=== PATIENT | female | born 1960 | race Two or more races ===

== ENCOUNTER 2020-12-06 02:27 | Emergency (ER) | payer MEDICAID ==
[~2020-12-06] VITALS: Ht 170.2 cm; Wt 96.0 kg
[2020-12-06 04:10] LABS: BASOPHILS % 0.6 % (0.0-2.0); EOSINOPHILS % 2.2 % (0.0-5.0); HEMOGLOBIN. 11.9 g/dL (12.0-16.0); LYMPHOCYTES % 49.3 % (20.0-50.0); MEAN CORPUSCULAR HEMOGLOBIN 31.7 pg (28.0-32.0); MEAN CORPUSCULAR VOLUME 96.4 fL (81.0-99.0); MONOCYTES % 6.8 % (2.0-8.0); NEUTROPHILS % 41.1 % (40.0-76.0); PLATELET 259 x1000/uL (130-400); RED BLOOD CELL COUNT 3.74 mill/uL (4.2-5.4)
[2020-12-06 04:17] LABS: CHLORIDE 107 mEq/L (98-107)
[2020-12-06] MEDS ORDERED: IOHEXOL-350 100 ML BOTTLE ONE (06:35)
[2020-12-06 08:09] VITALS: BP 150/70
== END 2020-12-06 09:26 | disposition home or self-care (01) ==
LOC: ER 02:27
DX: R06.00 Dyspnea, unspecified (principal); I10 Essential (primary) hypertension; F41.9 Anxiety disorder, unspecified; K21.9 Gastro-esophageal reflux disease without esophagitis; Z88.6 Allergy status to analgesic agent
CPT/HCPCS: 36415; 71045; 71275; 80053; 83880; 84484; 85025; 85379; 93005; 99285; Q9967

== ENCOUNTER 2021-01-10 21:22 | Inpatient (IN) | payer MEDICAID ==
[~2021-01-10] VITALS: Ht 165.1 cm; Wt 98.6 kg
[2021-01-10] MEDS ORDERED: ONDANSETRON HCL 4MG/2ML INJ IV STA (22:17)
[2021-01-10] MEDS ORDERED: SODIUM CHLORIDE 0.9% 1,000 ML IV ONE (22:30)
[2021-01-10 22:38] LABS: BASOPHILS % 0.3 % (0.0-2.0); EOSINOPHILS % 1.4 % (0.0-5.0); HEMATOCRIT. 36.8 % (36.0-48.0); HEMOGLOBIN. 12.4 g/dL (12.0-16.0); LYMPHOCYTES % 35.8 % (20.0-50.0); MEAN CORPUSCULAR HEMOGLOBIN 32.2 pg (28.0-32.0); MEAN CORPUSCULAR VOLUME 95.8 fL (81.0-99.0); MEAN PLATELET VOLUME 8.7 fl (7.4-10.4); MONOCYTES % 5.5 % (2.0-8.0); PLATELET 290 x1000/uL (130-400); RED BLOOD CELL COUNT 3.84 mill/uL (4.2-5.4); RED CELL DISTRIBUTION WIDTH 13.7 % (11.6-14.6)
[2021-01-10 22:45] LABS: CHLORIDE 103 mEq/L (98-107)
[2021-01-11] MEDS ORDERED: POTASSIUM CHLORIDE INJ 40 MEQ in DEXT 5% WATER 500 ML IV ONE (00:45)
[2021-01-11] MEDS ORDERED: POTASSIUM CHLORIDE 20MEQ TABLET SR PO ONE (00:45)
[2021-01-11] MEDS ORDERED: KETOROLAC 15MG/ML VIAL IV ONE (00:45)
[2021-01-11] MEDS ORDERED: LORAZEPAM 0.5MG TABLET PO ONE (00:45)
[2021-01-11] MEDS ORDERED: MORPHINE SULFATE 2 MG/ML CPJ (NOT FOR IM USE) IV PRN (07:00)
[2021-01-11] MEDS ORDERED: KETOROLAC 15MG/ML VIAL IV SCH (07:30)
[2021-01-11] MEDS ORDERED: ONDANSETRON HCL 4MG/2ML INJ IV PRN (09:00)
[2021-01-11] MEDS ORDERED: ACETAMINOPHEN 325MG TABLET PO PRN (09:00)
[2021-01-11 15:51] VITALS: BP 136/72
[2021-01-11 16:00] VITALS: BP 104/68
[2021-01-11 16:21] LABS: CLARITY URINE CLEAR (CLEAR); COLOR URINE YELLOW (YELLOW); KETONES URINE TRACE (NEGATIVE); LEUKOCYTE ESTERASE URINE NEGATIVE (NEGATIVE); NITRITE URINE NEGATIVE (NEGATIVE); OCCULT BLOOD URINE NEGATIVE (NEGATIVE); PROTEIN URINE TRACE (NEGATIVE); SPECIFIC GRAVITY URINE 1.032 (1.005-1.030); UROBILINOGEN URINE 0.2 E.U./dL (0.2-1.0)
[2021-01-11] MEDS ORDERED: OMEP20TA2 PO (16:44)
[2021-01-11] MEDS ORDERED: HYDR50TA PO (16:45)
[2021-01-11] MEDS ORDERED: LEVO200T8 PO (16:48)
[2021-01-11] MEDS ORDERED: CHOL400D7 PO (16:48)
[2021-01-11] MEDS ORDERED: ESCI-7 PO (16:48)
[2021-01-11] MEDS ORDERED: LORA10TA7 PO (16:48)
[2021-01-11 18:00] VITALS: BP_SYST 142; BP_SYST 152; BP_DIAS 68; BP_DIAS 71; BP_DIAS 77
[2021-01-11 21:25] VITALS: BP 134/73
[2021-01-11 21:27] VITALS: BP 132/66
[2021-01-11 21:29] VITALS: BP 137/77
[2021-01-11] MEDS ORDERED: LORATADINE 10MG TABLET PO SCH (22:00)
[2021-01-11] MEDS ORDERED: HYDROCODONE/ACETAMINOPHEN 5/325MG TABLET PO PRN (22:45)
[2021-01-11] MEDS ORDERED: NON FORMULARY PATIENT HOME MED XX SCH (22:45)
[2021-01-11] MEDS: ESCITALOPRAM 10MG TABLET PO SCH (22:57)
[2021-01-11] MEDS: OMEPRAZOLE 20MG CAPSULE EXTENDED RELEASE PO SCH (23:02)
[2021-01-12] VITALS (8 sets, daily range): BP systolic 123–161; BP diastolic 59–81
[2021-01-12] MEDS ORDERED: LEVOTHYROXINE SODIUM 200MCG TABLET PO SCH (06:45)
[2021-01-12] MEDS: OMEPRAZOLE 20MG CAPSULE EXTENDED RELEASE PO SCH (07:08)
[2021-01-12 07:20] LABS: BASOPHILS % 0.6 % (0.0-2.0); EOSINOPHILS % 2.4 % (0.0-5.0); HEMATOCRIT. 32.6 % (36.0-48.0); HEMOGLOBIN. 11.1 g/dL (12.0-16.0); LYMPHOCYTES % 42.5 % (20.0-50.0); MEAN CORPUSCULAR HEMOGLOBIN 32.3 pg (28.0-32.0); MEAN CORPUSCULAR VOLUME 95.4 fL (81.0-99.0); MEAN PLATELET VOLUME 8.8 fl (7.4-10.4); MONOCYTES % 6.3 % (2.0-8.0); NEUTROPHILS % 48.2 % (40.0-76.0); PLATELET 225 x1000/uL (130-400); RED BLOOD CELL COUNT 3.42 mill/uL (4.2-5.4); RED CELL DISTRIBUTION WIDTH 13.9 % (11.6-14.6)
[2021-01-12 07:44] LABS: CHLORIDE 107 mEq/L (98-107)
[2021-01-12] MEDS ORDERED: CHOLECALCIFEROL (VIT D3) 400 UNIT TABLET PO SCH (09:00)
[2021-01-12] MEDS: ESCITALOPRAM 10MG TABLET PO SCH ×2 (09:00→09:37)
[2021-01-12] MEDS ORDERED: POTASSIUM CHLORIDE 20MEQ TABLET SR PO NR (09:00)
[2021-01-13] MEDS ORDERED: FAMOTIDINE 20MG TABLET PO SCH (09:00)
== END 2021-01-12 18:55 | disposition home or self-care (01) | DRG 48 ==
LOC: ER 21:22 → 5WST 01-11 01:32 → EDBEDREQSVC 01-11 10:55 → ENRESERV 01-11 13:04
PROVIDERS: ADMIT Internal Medicine; ATTEND Internal Medicine
DX: G90.8 Other disorders of autonomic nervous system (principal); E03.9 Hypothyroidism, unspecified; E87.6 Hypokalemia; R51.9 Headache, unspecified; F41.9 Anxiety disorder, unspecified; Z79.899 Other long term (current) drug therapy; Z88.8 Allergy status to other drugs, medicaments and biological substances
CPT/HCPCS: 36415; 80048; 80053; 81003; 83036; 84443; 84484; 85025; 93005; 99291; J1885; J2405; J3480; J7030; J7060; A4315

== ENCOUNTER 2021-04-07 10:02 | Emergency (ER) | payer MEDICAID ==
[~2021-04-07] VITALS: Ht 167.6 cm; Wt 97.0 kg
[~2021-04-07 10:02] MED LIST: CHOL400D7 PO; ESCI-7 PO; HYDR50TA PO; LEVO200T8 PO; LORA10TA7 PO; OMEP20TA2 PO
[2021-04-07] MEDS ORDERED: LORAZEPAM 0.5MG TABLET PO ONE (12:00)
[2021-04-07] MEDS ORDERED: MECLIZINE 25MG TABLET PO ONE (12:00)
[2021-04-07] MEDS ORDERED: IBUPROFEN 400MG TABLET PO ONE (12:00)
[2021-04-07 12:10] LABS: BASOPHILS % 0.5 % (0.0-2.0); EOSINOPHILS % 0.6 % (0.0-5.0); HEMATOCRIT. 36.7 % (36.0-48.0); HEMOGLOBIN. 12.4 g/dL (12.0-16.0); LYMPHOCYTES % 22.8 % (20.0-50.0); MEAN CORPUSCULAR VOLUME 94.6 fL (81.0-99.0); MEAN PLATELET VOLUME 8.9 fl (7.4-10.4); NEUTROPHILS % 70.1 % (40.0-76.0); PLATELET 286 x1000/uL (130-400); RED BLOOD CELL COUNT 3.88 mill/uL (4.2-5.4); RED CELL DISTRIBUTION WIDTH 13.7 % (11.6-14.6)
[2021-04-07 12:17] LABS: CHLORIDE 102 mEq/L (98-107)
[2021-04-07 12:28] VITALS: BP 145/72
[2021-04-07] MEDS ORDERED: POTASSIUM CHLORIDE 20MEQ TABLET SR PO ONE (12:45)
[2021-04-07] MEDS ORDERED: POTASSIUM CHLORIDE 20MEQ TABLET SR PO NR ×2 (13:45→13:50)
== END 2021-04-07 15:18 | disposition home or self-care (01) ==
LOC: ER 10:15
DX: R42 Dizziness and giddiness (principal); R51.9 Headache, unspecified; E87.6 Hypokalemia; F41.9 Anxiety disorder, unspecified; I10 Essential (primary) hypertension; E03.9 Hypothyroidism, unspecified; Z79.899 Other long term (current) drug therapy
CPT/HCPCS: 36415; 80053; 83735; 85025; 93005; 99284; J8597

== ENCOUNTER 2023-05-16 01:05 | Emergency (ER) | payer MEDICAID ==
[~2023-05-16] VITALS: Ht 165.1 cm; Wt 70.0 kg
[~2023-05-16 01:05] MED LIST changes: -OMEP20TA2 PO; +OMEP20TA23 PO
[2023-05-16 01:11] VITALS: BP 157/77; PULSE 82; RESP 16; TEMP 98.4; O2SAT 99
[2023-05-16] MEDS ORDERED: MECLIZINE 25MG TABLET PO ONE (01:30)
== END 2023-05-16 03:19 | disposition left against medical advice (07) ==
LOC: ER 01:05
DX: R42 Dizziness and giddiness (principal); E03.9 Hypothyroidism, unspecified; I10 Essential (primary) hypertension; Z88.5 Allergy status to narcotic agent; Z86.39 Personal history of other endocrine, nutritional and metabolic disease
CPT/HCPCS: 99283; J8597